=== PATIENT | male | born 1970 | race Caucasian/White ===

== ENCOUNTER 2020-05-13 10:26 | Emergency (ER) | payer MEDICAID ==
[~2020-05-13] VITALS: Ht 175.3 cm; Wt 85.9 kg
[2020-05-13] MEDS ORDERED: LevETIRAcetam 500 MG TABLET PO ONE (11:30)
[2020-05-13] MEDS ORDERED: DiphenhydrAMINE HCL 25 MG CAPSULE PO ONE (11:30)
[2020-05-13] MEDS ORDERED: PredniSONE 20 MG TABLET PO ONE (11:30)
[2020-05-13] MEDS ORDERED: LORazepam 1 MG TABLET PO ONE (11:30)
[2020-05-13 11:39] LABS: BASOPHILS % (AUTO) 0.7 % (0.0-2.0); EOSINOPHILS % (AUTO) 2.1 % (1.0-6.0); HEMATOCRIT 40.3 % (41-53); LYMPHOCYTES # (AUTO) 1.8 K/uL (1.0-4.8); LYMPHOCYTES % (AUTO) 33.1 % (22.0-44.0); MEAN CORPUSCULAR HGB CONC 34.6 G/dL (31.0-37.0); MEAN CORPUSCULAR VOLUME 92 fL (80-100); MONOCYTES # (AUTO) 0.6 K/uL (0.1-1.0); MONOCYTES % (AUTO) 11.4 % (2.0-9.0); NEUTROPHILS # (AUTO) 2.9 K/uL (1.8-7.7); NEUTROPHILS % (AUTO) 52.7 % (40.0-70.0); PLATELET COUNT (AUTO) 240 K/uL (150-450); RED BLOOD CELL COUNT(AUTO) 4.37 MIL/uL (4.50-5.90); RED CELL DISTRIBUTION WIDTH 13.6 % (11.5-14.5)
[2020-05-13] MEDS ORDERED: RISP0.5T20 PO (11:48)
[2020-05-13] MEDS ORDERED: LEVE500T53 PO (11:48)
[2020-05-13] MEDS ORDERED: BENZ0.5T44 PO (11:48)
[2020-05-13 11:49] LABS: ANION GAP 6 mmol/L (8-16); CALCIUM, TOTAL 9.6 mg/dL (8.8-10.5); CARBON DIOXIDE 30 mmol/L (22-29); CHLORIDE 105 mmol/L (98-107); CREATININE 0.75 mg/dL (0.60-1.30); GLOMERULAR FILTR. RATE CALC > 60 mL/min (>60); GLUCOSE,RANDOM 101 mg/dL (70-110); SODIUM SERUM 141 mmol/L (136-145); UREA NITROGEN, BLOOD 18 mg/dL (7-18)
[2020-05-13 11:55] LABS: ALANINE AMINOTRANSFERASE 45 U/L (12-78); ALBUMIN 3.6 g/dL (3.4-5.0); ALKALINE PHOSPHATASE 66 U/L (46-116); ASPARTATE AMINOTRANSFERASE 22 U/L (15-37); BILIRUBIN,TOTAL 0.4 mg/dL (0.1-1.0); TOTAL PROTEIN, SERUM 7.7 g/dL (6.4-8.2)
[2020-05-13 12:29] LABS: AMPHET/METH SCREEN,URINE NEGATIVE (NEGATIVE); BARBITURATE SCREEN, URINE NEGATIVE (NEGATIVE); BENZODIAZEPINES SCREEN,URINE NEGATIVE (NEGATIVE); CANNABINOID SCREEN,URINE NEGATIVE (NEGATIVE); COCAINE SCREEN,URINE NEGATIVE (NEGATIVE); METHADONE SCREEN, URINE NEGATIVE (NEGATIVE); OPIATE SCREEN,URINE NEGATIVE (NEGATIVE)
[2020-05-13 12:30] LABS: PHENCYCLIDINE SCREEN,URINE NEGATIVE (NEGATIVE)
[2020-05-13 15:40] VITALS: BP 128/70
== END 2020-05-13 16:04 | disposition home or self-care (01) ==
LOC: EMS 10:30
DX: F41.9 Anxiety disorder, unspecified (principal); T78.40XA Allergy, unspecified, initial encounter; X58.XXXA Exposure to other specified factors, initial encounter
CPT/HCPCS: 36415; 80053; 80307; 85025; 99284; G0480; J7512

== ENCOUNTER 2020-05-26 14:49 | Emergency (ER) | payer MEDICAID ==
[~2020-05-26] VITALS: Ht 182.9 cm; Wt 81.8 kg
[~2020-05-26 14:49] MED LIST: BENZ0.5T44 PO; LEVE500T53 PO; RISP0.5T39 PO
[2020-05-26 15:02] VITALS: BP 105/64
[2020-05-26] MEDS ORDERED: GABA-1181 PO (15:06)
[2020-05-26] MEDS ORDERED: OLAN10TA3 PO (15:06)
[2020-05-26] MEDS ORDERED: BENZ1TAB10 PO (15:06)
[2020-05-26] MEDS ORDERED: OLAN5TAB2 PO (15:06)
[2020-05-26] MEDS ORDERED: PROP20TA18 PO (15:06)
[2020-05-26] MEDS ORDERED: PredniSONE 20 MG TABLET PO ONE (16:00)
[2020-05-26] MEDS ORDERED: DiphenhydrAMINE HCL 25 MG CAPSULE PO ONE (16:00)
== END 2020-05-26 16:21 | disposition home or self-care (01) ==
LOC: EMS 14:59
DX: T78.40XA Allergy, unspecified, initial encounter (principal); I10 Essential (primary) hypertension; F20.9 Schizophrenia, unspecified; F17.210 Nicotine dependence, cigarettes, uncomplicated; Z88.5 Allergy status to narcotic agent; Z88.8 Allergy status to other drugs, medicaments and biological substances; Z91.040 Latex allergy status; X58.XXXA Exposure to other specified factors, initial encounter
CPT/HCPCS: 99283; J7512